=== PATIENT | female | born 1935 | race Caucasian/White ===

== ENCOUNTER 2016-06-10 01:18 | Inpatient (IN) | payer OTHER ==
[~2016-06-10] VITALS: Ht 167.6 cm; Wt 82.1 kg
[~2016-06-10 01:18] MED LIST: ACCUPRIL40 M1 PO; CELEXA20 M1 PO; HYDROCHLOROTHIA25 M1 PO; LIPITOR20 M2 PO; ULTRAM50 M1 PO; VITAMIN B-121000 MC3 PO; VITAMIN D31000 UNI1 PO
[2016-06-10] MEDS ORDERED: COLACE100 M1 PO (11:19)
[2016-06-10] MEDS ORDERED: DILAUDID2 M1 PO (11:19)
[2016-06-10] MEDS ORDERED: ASPIRIN EC325 M2 PO (11:19)
[2016-06-10] MEDS ORDERED: MIRALAX17 G1 PO (11:19)
--- NOTE | 2016-06-10 11:22 | Patient Discharge Instructions ---
Discharge Instructions General Discharge Information You were seen/treated for: Left hip pain secondary to primary unilateral osteoarthritis You had these procedures: Left total hip replacement, anterior approach Watch for these problems: Increasing pain, redness, warmth, swelling. Drainage of any type from incision. Inability to bear weight on operative leg. Fever greater than 101.5. Do not soak the wound: Yes No bath, but you may shower: Yes Other wound care: Keep wound clean and dry Special Instructions: Incision: Dry dressing. May shower. No baths. No ointments of any kind. Ice as needed. Bowel regimen: Colace and or MiraLAX Weight-bearing as tolerated Follow-up with Dr. Metcalf in 6 weeks. Call office for fevers greater than 101.5, excessive drainage or inability to bear weight on operative extremity. Visiting nurse will change dressing. Diet Continue normal diet: Yes Recommended Diet: Heart Healthy Additional DIET Information: Advance as tolerated Activity Full Activity/No Limits: No Activity Self Limited: Yes Pounds, do NOT lift more than: 10 Acute Coronary Syndrome Inclusion Criteria At DC or during hospital stay patient has or had the following: ACS DIAGNOSIS No Discharge Core Measures Meds if any: Prescribed or Continued at Discharge Meds if any: NOT Prescribed or Continued at Discharge Congestive Heart Failure Inclusion Criteria At DC or during hospital stay patient has or had the following: CHF DIAGNOSIS No Discharge Core Measures Meds if any: Prescribed or Continued at Discharge Meds if any: NOT Prescribed or Continued at Discharge Cerebrovascular accident Inclusion Criteria At DC or during hospital stay patient has or had the following: CVA/TIA Diagnosis No Discharge Core Measures Meds if any: Prescribed or Continued at Discharge Meds if any: NOT Prescribed or Continued at Discharge Venous thromboembolism Inclusion Criteria VTE Diagnosis No VTE Type NONE VTE Confirmed by (Test) NONE Discharge Core Measures - Per Current guidelines, there needs to be overlap - treatment for the first 5 days of Warfarin therapy. - If discharged on Warfarin prior to 5 days of - overlap therapy, the patient will need to be - assessed for post discharge needs including - *Post discharge parental anticoagulation - *Warfarin and/or parental anticoagulation education - *Follow up date to check INR post discharge At least 5 days overlap therapy as Inpatient No Meds if any: Prescribed or Continued at Discharge Note: Overlap Therapy is Warfarin and Anticoagulant Meds if any: NOT Prescribed or Continued at Discharge
--- NOTE | 2016-06-10 11:24 | Surgical Discharge Summary ---
Visit Information Visit Dates Admission Date: 06/10/16 Discharge Date: 06-13-16 History of Present Illness Chief Complaint: Left hip pain secondary to primary unilateral osteoarthritis Surgical History Pertinent Surgical History: non-contributory Review of Systems: See H&P Hospital Course Course Attending Physician: DOT DIEHL MD Primary Care Physician: LETICIA PRADHAN,[facility] Course: Juliana was admitted to the hospital on 06/10/2016 for an elective left total hip replacement. She tolerated the procedure well. She was transferred to a general surgical floor. Her diet was advanced and tolerated. Her vital signs were stable and within normal limits. She voided spontaneously. Her pain was well controlled. She was evaluated and treated by physical therapy. She was deemed appropriate for discharge to home with outpatient follow up with Dr. Diehl in 6 weeks. Allergies: Coded Allergies: No Known Allergies (06/09/16) Disposition Summary Disposition Principal Diagnosis: Left hip unilateral primary osteoarthritis Additional Diagnosis: None Discharge Disposition: home health services Discharge Instructions General Discharge Information Code Status: Full Code Patient's Diet: Heart healthy, advance as tolerated Patient's Activity: Weight-bear as tolerated on left leg Follow-Up Instructions/Appts: Incision: Dry dressing. May shower. No baths. No ointments of any kind. Ice as needed. Bowel regimen: Colace and or MiraLAX Weight-bearing as tolerated Follow-up with Dr. Diehl in 6 weeks. Call office for fevers greater than 101.5, excessive drainage or inability to bear weight on operative extremity. Visiting nurse will change dressing. Medications at Discharge Discharge Medications: Stop taking the following medications: Tramadol HCl (Ultram) 50 MG TABLET ORAL 2 x Daily as needed as needed for PAIN Continue taking these medications: Citalopram Hydrobromide (Celexa) 20 MG TABLET 1 Tablet ORAL DAILY Hydrochlorothiazide (Hydrochlorothiazide) 25 MG TABLET 1 Tablet ORAL DAILY Atorvastatin Calcium (Lipitor) 20 MG TABLET 1 Tablet ORAL DAILY Quinapril HCl (Accupril) 40 MG TABLET 1 Tablet ORAL DAILY Cholecalciferol (Vitamin D3) (Vitamin D3) 1,000 UNIT CAPSULE 1 Capsule ORAL DAILY Cyanocobalamin (Vitamin B-12) 1,000 MCG TABLET 1 Tablet ORAL Start taking the following new medications: Hydromorphone HCl (Dilaudid) 2 MG TABLET 1-2 Tablet ORAL Q4-6H as needed for PAIN Qty = 36 No Refills Aspirin (Ecotrin*) 325 MG TABLET.DR 1 Tablet ORAL TWICE DAILY Qty = 60 No Refills Docusate Sodium (Colace) 100 MG CAPSULE 1 Capsule ORAL TWICE DAILY Qty = 14 No Refills Instructions: DISCONTINUE USE IF YOU DEVELOP LOOSE STOOL OR DIARRHEA Polyethylene Glycol 3350 (Miralax) 17 GRAM POWD.PACK 1 Packet ORAL DAILY Qty = 7 No Refills Instructions: dissolve in water, DISCONTINUE USE IF YOU DEVELOP LOOSE STOOL OR DIARRHEA
--- NOTE | 2016-06-10 11:25 | Admission Core Measures ---
Admission Meds I reviewed the following Meds: Current Medications Sig/Myron Start time Last Medication Dose Stop Time Status Admin Acetaminophen 975 MG ONCE 06/10 NR (Tylenol) 06/10 2358 Atorvastatin Calcium 20 MG DAILY 06/11 999 AC (Lipitor) Cefazolin Sodium 2,000 MG ONCE 06/10 NR (Kefzol-Ancef Inj) 06/10 2358 Citalopram 20 MG DAILY 06/11 999 AC Hydrobromide (Celexa) Hydrochlorothiazide 25 MG DAILY 06/11 999 AC (Hydrodiuril) Lisinopril 40 MG DAILY 06/11 1000 AC (Prinivil) Oxycodone HCl 10 MG ONCE 06/10 NR (Roxicodone) 06/10 2358 Acute Coronary Syndrome Inclusion Criteria ACS Diagnosis No Inpatient Core Measures LDL Reminder: If No, please order W/I first 24hr of stay Congestive Heart Failure Inclusion Criteria CHF Diagnosis No Cerebrovascular accident Inclusion Criteria CVA/TIA Diagnosis No Inpatient Core Measures Bedside Swallow Eval Reminder: If BSE failed, place ST order Antithrombotic Reminder: Order Antithrombotic Medication by end of day 2 Antithrombotic Reminder: Document Reason Antithrombotic Not ordered by end of day 2 AFIB/Flutter Reminder: If Present, add to problem list AFIB/Flutter Reminder: Order Anticoag Medication for pts with AFIB/Flutter Atherosclerosis Reminder: If Present, add to problem list LDL Reminder: If No, please order W/I first 24hr of stay PT Order Reminder: If No, please order Venous thromboembolism Inpatient Core Measures VTE Risk Factors: Age > 40, Surgery No [facility] VTE prophylaxis d/t No contraindications No VTE Pharm Prophylaxis d/t No contraindications Inclusion Criteria - Per Current guidelines, there needs to be overlap - treatment for the first 5 days of Warfarin therapy. - Parenteral Anticoagulation (IV or SC) needs to be - given along with Warfarin therapy. VTE Diagnosis No VTE Type NONE VTE Confirmed by (Test) NONE Problem List As ranked by this Provider includes Assessment & Plan 1. Unilateral primary osteoarthritis, left hip HOME MEDS Home Med List Aspirin (Ecotrin*) 325 MG TABLET.DR 1 TAB PO BID ANTICOAGULATION Atorvastatin Calcium (Lipitor) 20 MG TABLET 1 TAB PO DAILY CHOL (Reported) Cholecalciferol (Vitamin D3) (Vitamin D3) 1,000 UNIT CAPSULE 1 CAP PO DAILY SUPP (Reported) Citalopram Hydrobromide (Celexa) 20 MG TABLET 1 TAB PO DAILY DEPRESSION ( Reported) Docusate Sodium (Colace) 100 MG CAPSULE 1 CAP PO BID CONSTIPATION Hydrochlorothiazide 25 MG TABLET 1 TAB PO DAILY BP (Reported) Hydromorphone HCl (Dilaudid) 2 MG TABLET 1-2 TAB PO Q4-6H PRN PAIN Polyethylene Glycol 3350 (Miralax) 17 GRAM POWD.PACK 1 PAC PO DAILY CONSTIPATION Quinapril HCl (Accupril) 40 MG TABLET 1 TAB PO DAILY BP (Reported) Tramadol HCl (Ultram) 50 MG TABLET 1 TAB PO BIDP PRN PAIN (Reported)
--- NOTE | 2016-06-10 11:45 | RADIOLOGY REPORT ---
EXAMINATION: XR HIP, LEFT CLINICAL INFORMATION: Status post left hip replacement. COMPARISON: None. TECHNIQUE: Two views of the left hip. FINDINGS: There are sequelae of a left total hip replacement. The alignment of the hardware appears normal. No acute fractures are demonstrated. There are expected postoperative changes in the soft tissues. A urinary catheter is partially visualized. IMPRESSION: 1. The study demonstrates sequelae of a left total hip arthroplasty.
[2016-06-10 13:06] VITALS: BP 108/64
--- NOTE | 2016-06-10 14:54 | PN- Student ---
ZEFERINO GARDINER 06/10/16 1440: Subjective Subjective: Patient reports no acute complaints in immediate post op course. She states she has left hip pain as expected. At the worst the pain is 9/10 and with pain medication currently is a 5/10. She describes the pain as soreness. She denies any chest pain, shortness of breath, nausea, vomiting, leg pain, numbness or tingling, dysuria, or flatus. Objective Objective: Vitals: BP: 108/64 Pulse: 65 Resp: 8 Temp: 97.3F SpO2: 98% NC 3LPM Physical Exam: General: Patient sitting in chair at bedside, well-appearing, in no acute distress. Alert and oriented to person place time and event. Skin: [place] warm and dry. Head: Normocephalic, atraumatic. Eyes: PERRL, EOMI. Cardiac: Regular rate and rhythm, normal S1/S2, no murmurs, rubs or gallops. Pulmonary: Clear to ausculation bilaterally. No wheezes, rhonchi, or rales. Abdomen: Soft, non-tender, non-distended. Extremities: Bilateral 2+ radial and dorsalis pedis pulses. No calf tenderness bilaterally, no swelling, no edema. Incision site covered by dressing. Assessment/Plan Assessment: Patient is a 80 year old female with a history of osteoarthritis of the left hip who is POD#0 s/p total left hip replacement without hospital stay complications. Plan: -Continue pain managment as requested by Dr. Metcalf. -Continue ALPs, out of bed ambulation as tolerated, and ASA for DVT prophylaxis. -Continue home medications as needed. -Physical therapy as directed. -Monitor I/O's. -Discontinue NC O2 as tolerated. -Initiate incentive spirometry. Will discuss the above with PA Surgical team. Zeferino Gardiner PA-S2 KATHY LOO 06/10/16 1602: Addendum Addendum I have seen and examined patient and agree with above. Dressing c/d/i. LLE compartments soft.
[2016-06-10 14:59] VITALS: BP 100/70
--- NOTE | 2016-06-10 15:16 | Operative Report ---
Operative/Inv Procedure Report Surgery Date: 06/10/16 Name of Procedure: 1. left total hip replacement 2. Left knee cortisone injection Pre-Operative Diagnosis: 1. Primary left hip DJD 2. Primary left knee DJD Post-Operative Diagnosis: Same Estimated Blood Loss: 250 Surgeon/Vp Purchasing: FAZAL PRADHAN,DOT Virgen Anesthesia: block Operative/Procedure Note Note: Description of Procedure: The patient was taken to the operating room and positively identified. After induction of spinal anesthesia and administration of appropriate pre-operative antibiotics, the patient was positioned supine on the operating room table and all bony prominences were well padded. The left knee was prepped sterilely and injected with a mixture of 2 mL of Depo- Medrol and 8 mL of half percent Marcaine. A Band-Aid was placed over the injection site. After performing a surgical timeout, the left lower extremity was prepped and draped in the usual sterile fashion. A direct anterior approach was made to the left hip. The incision was carried sharply through superficial soft tissues to the level of the fascia. Meticulous hemostasis was maintained with Bovie electocautery. The fascia over the tensor fascia hakeem muscle was opened sharply and the interval between the TFL and the sartorius was entered bluntly taking care to stay lateral to the lateral femoral cutaneous nerve. Retractors were placed around the femoral neck and the pericapsular fat was identified. The ascending branches of the lateral femoral circumflex vessels were identified and carefully coagulated. The pericapsular fat and anterior capsule were then resected. A napkin ring osteotomy was performed and the femoral head was removed without difficulty. Attention was then turned to the acetabulum. After appropriate placement of retractors, the acetabulum was exposed. Soft tissue was cleaned from the acetabular margin and notch. Overhanging osteophytes were removed and the teardrop was exposed. The acetabulum was then sequentially reamed to accept a 54 mm Kisha Tritanium hemispherical solid back shell. This was impacted into place in the appropriate position and fitted with a 36 mm Trident X3 zero degree polyethylene insert. Attention was then turned to the femur. After performing the appropriate ligament releases, the proximal femur was exposed. It was then sequentially broached to accept a size 6 [place] accolade 2 stem. This was trialed for leg length and stability. The trial component was removed and the final component was impacted into place. The trunnion was carefully cleaned and fit with a 36 mm, -2.5 Biolox delta ceramic femoral head. The hip was reduced and put through a full range of motion and found to be stable. The articular space was then irrigated with sterile saline. The periarticular soft tissues were infilitrated with Marcaine. The fascial layer was closed with interrupted #1 vicryl suture and the skin was re-approximated with interrupted 2 -0 vicryl. The skin was closed with a running 3-0 V-Lock suture. Steri-strips and a sterile dressing were applied. The patient was awakened and taken to the recovery room in satisfactory condition.
[2016-06-10 17:21] VITALS: BP 110/60
[2016-06-10 19:07] VITALS: BP 102/60
--- NOTE | 2016-06-10 20:00 | NUR ---
1245-PT ARRIVED TO FLOOR VIA STRETCHER FROM PACU. VSS. KARIMI REMOVED IN PACU AT 1230, DTV BY 2029. PT HAD L TOTAL HIP AND ALSO HAD CORTISONE INJECTION TO L KNEE. DRESSING TO L HIP C,D,I. SLIGHT EDEMA NOTED TO L HIP AND SMALL AMOUNT OF ECCHYMOSIS BELOW SURICAL SITE. PT A/V/OX3. FORGETFUL AT TIMES. BED ALARM PLACED. ORIENTED TO ROOM AND CALL LIGHT FOR ASSIST.
[2016-06-10 21:26] VITALS: BP 100/60
[2016-06-11 01:16] VITALS: BP 100/60
[2016-06-11 06:33] VITALS: BP 102/56
[2016-06-11 08:23] LABS: ABSOLUTE BASOPHIL COUNT 0 /CUMM (0.0-0.2); ABSOLUTE EOSINOPHIL COUNT 0 /CUMM (0.0-0.7); ABSOLUTE GRANULOCYTE CT 9.8 /CUMM (1.4-6.5); ABSOLUTE LYMPH COUNT 0.7 /CUMM (1.2-3.4); ABSOLUTE MONOCYTE COUNT 0.7 /CUMM (0.10-0.60); BASOPHIL % 0 % (0.0-2.0); EOSINOPHIL % 0 % (0-5); HEMATOCRIT 31.6 % (37-47); MEAN CORPUSCULAR HGB 29.1 PG (27.0-31.0); MEAN CORPUSCULAR HGB CONC 33.7 G/DL (33.0-37.0); MEAN CORPUSCULAR VOLUME 86.6 FL (81.0-99.0); MEAN PLATELET VOLUME 8.1 FL (7.4-10.4); PLATELET COUNT 211 /CUMM (130-400); RBC DISTRIBUTION WIDTH 13.9 % (11.5-14.5); RED BLOOD CELL CT 3.65 /CUMM (4.20-5.40); WHITE BLOOD CELL COUNT 11.2 /CUMM (4.8-10.8)
[2016-06-11 09:21] LABS: GRANULOCYTE % 87.4 % (42.2-75.2)
--- NOTE | 2016-06-11 10:24 | PN- Orthopedic ---
See Addendum Subjective Subjective: NAEO. Patient without new c/o. Continues to have pain in left hip but is tolerable with PO pain meds. Tolerating diet without n/v. +flatus, no BM. OOB with PT. Denies CP/SOB. Objective Vital Signs and I&Os Vital Signs Date Time Temp Pulse Resp B/P Pulse O2 O2 Flow FiO2 Ox Delivery Rate 06/11 905 66 118/72 06/11 0751 19 98 Room Air 06/11 0633 97.7 57 20 102/56 99 Nasal Cannula 06/11 0116 97.9 68 20 100/60 98 03 0000 97 Nasal 1.0L Cannula 06/10 2126 98.3 63 20 100/60 97 Nasal Cannula 06/10 1907 98.5 67 20 102/60 97 Nasal Cannula 06/10 1721 97.7 62 20 110/60 98 Nasal Cannula 06/10 1459 97.3 67 20 100/70 97 Nasal 2.0L Cannula 06/10 1409 98 Nasal 2.0L Cannula 06/10 1306 97.3 65 8 108/64 98 Nasal 2.0L Cannula Intake & Output 06/11 1600 06/11 0800 / 0000 /08 1600 06/10 0800 06/10 0000 Intake Total 500 300 780 Output Total 400 400 Balance 100 -100 780 Intake, IV 300 Intake, Oral 500 300 480 Output, Urine 400 400 Patient 181 lb Weight Current Medications: Current Medications Sig/Myron Start time Last Medication Dose Route Stop Time Status Admin Acetaminophen 650 MG Q4P PRN 06/10 1315 AC PO Acetaminophen 975 MG ONCE 06/10 0000 DC PO 06/10 2359 Aspirin 325 MG BID 06/10 2200 AC 06/11 PO 0906 Atorvastatin Calcium 20 MG DAILY 06/11 1000 DC PO Atorvastatin Calcium 20 MG 1700 06/10 1700 AC 06/10 PO 1627 Cefazolin Sodium 2 GM IQ8 06/10 1600 DC 06/11 N/A 1 UNIT IV 06/11 0029 0006 Cefazolin Sodium 2,000 MG ONCE 06/10 0000 DC IV 06/10 2359 Citalopram 20 MG DAILY 06/11 1000 DC Hydrobromide PO Citalopram 20 MG DAILY 06/11 1000 AC 06/11 Hydrobromide PO 0906 Dextrose/Sodium 1,000 ML .[id number] 06/10 1315 DC 06/11 Chloride IV 0631 Docusate Sodium 100 MG BID 06/10 2200 AC 06/11 PO 09 Hydrochlorothiazide 25 MG DAILY 06/11 1000 DC PO Hydrochlorothiazide 25 MG DAILY 06/11 1000 AC 06/11 PO 0909 Hydromorphone HCl 2 MG Q4P PRN 06/10 1315 AC 06/11 PO 0238 Hydromorphone HCl 4 MG Q4P PRN 06/10 1315 AC 06/11 PO 0832 Hydromorphone HCl 2 MG .STK-MED ONE 06/10 1119 DC IM 06/10 1120 Lisinopril 40 MG DAILY 06/11 1000 DC PO Lisinopril 40 MG DAILY 06/11 1000 AC 06/11 PO 09 Meperidine HCl 50 MG .STK-MED ONE 06/10 1118 DC IM 06/10 1119 Morphine Sulfate 2 MG Q2P PRN 06/10 1315 AC IV Omeprazole 40 MG DAILY AC 06/11 0700 AC 06/11 PO 0631 Ondansetron HCl 4 MG Q6P PRN 06/10 1315 AC IV Oxycodone HCl 10 MG ONCE 06/10 0000 DC PO 06/10 2359 Polyethylene Glycol 17 GM DAILY 06/11 1000 AC 06/11 PO 09 Promethazine HCl 12.5 MG Q6P PRN 06/10 1315 AC IV 06/17 1114 Results Last 48 Hours of Labs: Laboratory Tests 06/11 714 Chemistry Sodium (137 - 145 mmol/L) 137 Potassium (3.5 - 5.1 mmol/L) 4.3 Chloride (98 - 107 mmol/L) 103 Carbon Dioxide (22 - 30 mmol/L) 28 Anion Gap (5 - 16) 5 BUN (7 - 17 mg/dL) 13 Creatinine (0.5 - 1.0 mg/dL) 0.7 Estimated GFR (>60 ml/min) > 60 BUN/Creatinine Ratio (7 - 25 %) 18.6 Hematology CBC w Diff NO MAN DIFF REQ WBC (4.8 - 10.8 /CUMM) 11.2 H RBC (4.20 - 5.40 /CUMM) 3.65 L Hgb (12.0 - 16.0 G/DL) 10.6 L Hct (37 - 47 %) 31.6 L MCV (81.0 - 99.0 FL) 86.6 MCH (27.0 - 31.0 PG) 29.1 RDW (11.5 - 14.5 %) 13.9 Plt Count (130 - 400 /CUMM) 211 MPV (7.4 - 10.4 FL) 8.1 Gran % (42.2 - 75.2 %) 87.4 H Lymphocytes % (20.5 - 51.1 %) 6.1 L Monocytes % (1.7 - 9.3 %) 6.5 Eosinophils % (0 - 5 %) 0 Basophils % (0.0 - 2.0 %) 0 L Absolute Granulocytes (1.4 - 6.5 /CUMM) 9.8 H Absolute Lymphocytes (1.2 - 3.4 /CUMM) 0.7 L Absolute Monocytes (0.10 - 0.60 /CUMM) 0.7 H Absolute Eosinophils (0.0 - 0.7 /CUMM) 0 Absolute Basophils (0.0 - 0.2 /CUMM) 0 PUBS MCHC (33.0 - 37.0 G/DL) 33.7 Assessment/Plan Assessment/Plan 80yo F POD#1 s/p Left ISRRAEL. AVSS, patient progressing well. - Pain control - DC IVF - OOB with PT - Bowel regimen - ASA 325mg PO BID and ALPS for DVT PPx - I/O's - PRN zofran - will d/w attending Core Measures/Miscellaneous Venous Thromboembolism VTE Risk Factors: Age > 40 VTE Contraindications: No Contraindications VTE Diagnosis: No VTE Type: NONE VTE Confirmed by (Test): NONE Beta Silas Is Beta Silas a Home Med? No Antibiotics Is Patient on Antibiotics? No
[2016-06-11 14:49] VITALS: BP 98/74
[2016-06-11 22:13] VITALS: BP 100/60
[2016-06-12 07:34] VITALS: BP 128/60
[2016-06-12 07:36] VITALS: BP 110/60
[2016-06-12 08:09] LABS: ABSOLUTE BASOPHIL COUNT 0 /CUMM (0.0-0.2); ABSOLUTE EOSINOPHIL COUNT 0 /CUMM (0.0-0.7); ABSOLUTE GRANULOCYTE CT 6.7 /CUMM (1.4-6.5); ABSOLUTE LYMPH COUNT 1.1 /CUMM (1.2-3.4); ABSOLUTE MONOCYTE COUNT 0.6 /CUMM (0.10-0.60); BASOPHIL % 0.2 % (0.0-2.0); EOSINOPHIL % 0.5 % (0-5); HEMATOCRIT 30.1 % (37-47); MEAN CORPUSCULAR HGB 28.8 PG (27.0-31.0); MEAN CORPUSCULAR VOLUME 87.4 FL (81.0-99.0); MEAN PLATELET VOLUME 8.4 FL (7.4-10.4); PLATELET COUNT 201 /CUMM (130-400); RBC DISTRIBUTION WIDTH 13.9 % (11.5-14.5); RED BLOOD CELL CT 3.44 /CUMM (4.20-5.40); WHITE BLOOD CELL COUNT 8.4 /CUMM (4.8-10.8)
--- NOTE | 2016-06-12 08:46 | PN- Orthopedic ---
Subjective Subjective: Patient reporting no acute overnight events. Pain controlled with po pain medication. No complaints of nausea or vomitting. No complaints of chest pain, shortness of breath and difficulty breathing. Has been oob to ambulate. Noted fatigue after walking length of hospital floor but pain was tolerable. Will do stairs this afternoon, anticipates discharge to home tomorrow. Objective Vital Signs and I&Os Vital Signs Date Time Temp Pulse Resp B/P Pulse O2 O2 Flow FiO2 Ox Delivery Rate 06/12 0736 97.7 67 20 110/60 96 Room Air 06/11 2213 98.3 67 18 100/60 95 06/11 1449 98.2 62 20 98/74 96 06/11 0906 66 118/72 Intake & Output 06/12 1600 06/12 0806/12 0000 06/11 1600 06/11 0806/11 0000 Intake Total 250 490 500 300 Output Total 300 350 400 400 Balance -50 490 -350 100 -100 Intake, IV 10 10 Intake, Oral 240 480 500 300 Output, Urine 300 350 400 400 Physical Exam: General: Alert and oriented x3, no acute distress Cardiac: RRR, s1s2 Pulmonary: CTA bilaterally Abdomen: Non-tender, non-distended Extremities: Moves all extremities, distal sesnation intact. Motor 5/5 in plantar and dorsi flexion. Skin warm and well perfused. Bilateral calves soft and non-tender. Palpable dp pulses bialterally Surgical site: Left hip/groin, dressing dry and intact, changed. skin edges well approximated, steri strips in place, roland-incisional bruising noted. Clean dry dressing reapplied. Assessment/Plan Assessment/Plan This is ai 80 year old female, POD 2, s/p left thr -Daily dry dressing changes -Continue current pain regimen -Continue current dvt ppx -OOB with pt today on stairs, wbat -Continue bowel regimen -Continue diet as tolerated -Plan for discharge to home tomorrow Core Measures/Miscellaneous Venous Thromboembolism VTE Risk Factors: Age > 40 VTE Contraindications: No Contraindications VTE Diagnosis: No VTE Type: NONE VTE Confirmed by (Test): NONE Beta Silas Is Beta Silas a Home Med? No Antibiotics Is Patient on Antibiotics? No
--- NOTE | 2016-06-12 13:28 | NUR ---
WHEN AMBULATING IN [facility] WITH PT, PATIENT FELT DIZZY AND FAINT. WAS SEATED IN CHAIR AND WHEELED BACK TO BED. ABLE TO FOLLOW COMMANDS AND BE ASSISTED BACK INTO BED. WHEN AMBULATING, BP 86/50 HR 86 AND FINGERSTICK 86. WHEN BACK IN BED, BP 110/50 HR 80. SURGICAL PA AT BEDSIDE. TO ORDER EKG AND BLOOD WORK. BED ALARM IN PLACE, CALL [facility] WITHIN REACH. WILL MONITOR.
[2016-06-12 14:05] LABS: ABSOLUTE BASOPHIL COUNT 0 /CUMM (0.0-0.2); ABSOLUTE EOSINOPHIL COUNT 0.1 /CUMM (0.0-0.7); ABSOLUTE LYMPH COUNT 1.1 /CUMM (1.2-3.4); ABSOLUTE MONOCYTE COUNT 0.5 /CUMM (0.10-0.60); BASOPHIL % 0.1 % (0.0-2.0); EOSINOPHIL % 0.8 % (0-5); GRANULOCYTE % 80.1 % (42.2-75.2); HEMATOCRIT 30.7 % (37-47); MEAN CORPUSCULAR HGB 29.2 PG (27.0-31.0); MEAN CORPUSCULAR HGB CONC 33.7 G/DL (33.0-37.0); MEAN CORPUSCULAR VOLUME 86.7 FL (81.0-99.0); MEAN PLATELET VOLUME 8.1 FL (7.4-10.4); PLATELET COUNT 226 /CUMM (130-400); RED BLOOD CELL CT 3.54 /CUMM (4.20-5.40); WHITE BLOOD CELL COUNT 8.7 /CUMM (4.8-10.8)
[2016-06-12 14:31] VITALS: BP 100/70
--- NOTE | 2016-06-12 16:53 | NUR ---
FINGERSTICK CHECKED AT THIS TIME 91 DENIES DIZZINESS OR LIGHTHEADEDNESS. ASSISTED TO CHAIR. WILL CONTINUE TO MONITOR
[2016-06-12 23:45] VITALS: BP 110/60
[2016-06-13 06:54] VITALS: BP 132/70
--- NOTE | 2016-06-13 11:43 | PN- Orthopedic ---
Subjective Subjective: POD #3 s/p L THR. Resting in bed. No complaints. Objective Vital Signs and I&Os Vital Signs Date Time Temp Pulse Resp B/P Pulse O2 O2 Flow FiO2 Ox Delivery Rate 06/13 0654 98.4 87 18 132/70 97 Room Air 06/12 2345 98.8 69 18 110/60 96 Room Air 06/12 1431 98.5 71 20 100/70 92 Room Air Intake & Output 06/13 1600 06/13 0800 06/13 0000 06/12 1600 06/12 0800 06/12 0000 Intake Total 800 600 250 490 Output Total 200 700 300 Balance -200 800 -100 -50 490 Intake, IV 0 10 10 Intake, Oral 800 600 240 480 Number 0 Bowel Movements Output, Urine 200 700 300 Physical Exam: Gen: AAox3 in NAD Cor: S1+S2+ Lungs: CTA daniel Abd: soft, NT, ND, +BS x4 Ext: no edema or calf tenderness to daniel lower extremities. L hip dressing changed. Incision intact without surrounding erythema or drainage. Palpable DP pulses daniel. Dorsiflexion and plantar flexion intact. Current Medications: Current Medications Sig/Myron Start time Last Medication Dose Route Stop Time Status Admin Acetaminophen 650 MG Q4P PRN 06/10 131 AC PO Aspirin 325 MG BID 06/100 AC 06/13 PO 0839 Atorvastatin Calcium 20 MG 1700 06/10 1700 AC 06/12 PO 1634 Citalopram 20 MG DAILY 06/11 1000 AC 06/13 Hydrobromide PO 0839 Docusate Sodium 100 MG BID 06/10 2200 AC 06/13 PO 0839 Hydrochlorothiazide 25 MG DAILY 06/11 1000 AC 06/13 PO 0841 Hydromorphone HCl 2 MG Q4P PRN 06/10 1315 AC 06/11 PO 0238 Hydromorphone HCl 4 MG Q4P PRN 06/10 1315 AC 06/13 PO 0839 Ketorolac 30 MG .STK-MED ONE 06/12 1635 DC Tromethamine IM 06/12 1636 Ketorolac 15 MG Q8P PRN 06/11 1830 DC 06/12 Tromethamine IV 1639 Lisinopril 40 MG DAILY 06/11 1000 AC 06/13 PO 0841 Morphine Sulfate 2 MG Q2P PRN 06/10 1315 DC 06/11 IV 1116 Omeprazole 40 MG DAILY AC 06/11 0700 AC 06/13 PO 0643 Ondansetron HCl 4 MG Q6P PRN 06/10 1315 AC IV Patient Medication 1 ED .STK-MED ONE 06/12 1416 [facility] ED 06/12 1417 Polyethylene Glycol 17 GM DAILY 06/11 1000 AC 06/13 PO 0839 Promethazine HCl 12.5 MG Q6P PRN 06/10 1315 AC IV 06/17 1114 Results Last 48 Hours of Labs: Laboratory Tests 06/12 06/12 1335 0630 Chemistry Sodium (137 - 145 mmol/L) 136 L Potassium (3.5 - 5.1 mmol/L) 4.1 Chloride (98 - 107 mmol/L) 99 Carbon Dioxide (22 - 30 mmol/L) 29 Anion Gap (5 - 16) 8 BUN (7 - 17 mg/dL) 20 H Creatinine (0.5 - 1.0 mg/dL) 0.9 Estimated GFR (>60 ml/min) > 60 BUN/Creatinine Ratio (7 - 25 %) 22.2 Troponin I (< 0.11 ng/ml) < 0.01 Hematology CBC w Diff NO MAN DIFF REQ NO MAN DIFF REQ WBC (4.8 - 10.8 /CUMM) 8.7 8.4 RBC (4.20 - 5.40 /CUMM) 3.54 L 3.44 L Hgb (12.0 - 16.0 G/DL) 10.3 L 9.9 L Hct (37 - 47 %) 30.7 L 30.1 L MCV (81.0 - 99.0 FL) 86.7 87.4 MCH (27.0 - 31.0 PG) 29.2 28.8 RDW (11.5 - 14.5 %) 14.0 13.9 Plt Count (130 - 400 /CUMM) 226 201 MPV (7.4 - 10.4 FL) 8.1 8.4 Gran % (42.2 - 75.2 %) 80.1 H 80.0 H Lymphocytes % (20.5 - 51.1 %) 13.1 L 12.7 L Monocytes % (1.7 - 9.3 %) 5.9 6.6 Eosinophils % (0 - 5 %) 0.8 0.5 Basophils % (0.0 - 2.0 %) 0.1 0.2 Absolute Granulocytes (1.4 - 6.5 /CUMM) 7.0 H 6.7 H Absolute Lymphocytes (1.2 - 3.4 /CUMM) 1.1 L 1.1 L Absolute Monocytes (0.10 - 0.60 /CUMM) 0.5 0.6 Absolute Eosinophils (0.0 - 0.7 /CUMM) 0.1 0 Absolute Basophils (0.0 - 0.2 /CUMM) 0 0 PUBS MCHC (33.0 - 37.0 G/DL) 33.7 33.0 Assessment/Plan Assessment/Plan A: POD #3 s/p L THR. AVSS. Plan: D/C today. Core Measures/Miscellaneous Venous Thromboembolism VTE Risk Factors: Age > 40 VTE Contraindications: No Contraindications VTE Diagnosis: No VTE Type: NONE VTE Confirmed by (Test): NONE Beta Silas Is Beta Silas a Home Med? No Antibiotics Is Patient on Antibiotics? No
== END 2016-06-13 12:35 | disposition home health service (06) | DRG 470 ==
LOC: ENRESERVTM → ENRESERVDT → ENPENDDIS 01:18 → 2NA 01:18 → SDA 01:18 → 2NA 12:43
PROVIDERS: Nurse Practitioner; Physician Assistant Surgical; ADMIT Orthopaedic Surgery
PROC: 3E0U3BZ Introduction of Anesthetic Agent into Joints, Percutaneous Approach (ICD-10-PCS; principal; 2016-06-10)
PROC: 0SRB04A Replacement of Left Hip Joint with Ceramic on Polyethylene Synthetic Substitute, Uncemented, Open Approach (ICD-10-PCS; principal; 2016-06-10)
PROC: 3E0U33Z Introduction of Anti-inflammatory into Joints, Percutaneous Approach (ICD-10-PCS; principal; 2016-06-10)
DX: M16.12 Unilateral primary osteoarthritis, left hip (principal); I10 Essential (primary) hypertension; M17.12 Unilateral primary osteoarthritis, left knee; F32.9 Major depressive disorder, single episode, unspecified; K58.9 Irritable bowel syndrome, unspecified; K21.9 Gastro-esophageal reflux disease without esophagitis; E78.00 Pure hypercholesterolemia, unspecified
CPT/HCPCS: 2NASP; 36415; 73502-LT; 82436; 88304; 93005; 93010; 97110-GO; 97116-GO; 97161-GP; 97530-GO; J0690; J0735; J1030; J1885; J2405; J2550; J7042